=== PATIENT | male | born 1965 | race Caucasian/White ===

== ENCOUNTER 2020-05-02 | Outpatient (REF) | payer OTHER, SELFPAY | END 2020-05-02 00:01 | disposition home or self-care (01) | LOC: HO.WFDLNP | PROVIDERS: Visit Provider Internal Medicine | DX: Z13.89 Encounter for screening for other disorder (principal) ==

== ENCOUNTER 2020-05-03 08:37 | Outpatient (REF) | payer OTHER, SELFPAY | END 2020-05-03 08:38 | disposition home or self-care (01) | LOC: HO.WFDLNP 08:37 | PROVIDERS: Visit Provider Internal Medicine | DX: Z20.828 Contact with and (suspected) exposure to other viral communicable diseases (principal) | CPT/HCPCS: U0003 ==